=== PATIENT | male | born 1980 | race Caucasian/White ===

== ENCOUNTER 2017-02-22 09:09 | Day surgery (SDC) | payer OTHER ==
[~2017-02-22 09:09] MED LIST: DEXAMETHASONE 10 MG/ML VIAL IVP ONE; ceFAZolin 2 GM/DEXTROSE 100 ML IV ONE
[2017-02-22] MEDS ORDERED: CEFAZOLIN 2 GM/DEXTROSE/100 ML BAG IV ONE (09:31)
[2017-02-22] MEDS ORDERED: DEXAMETHASONE 10 MG/ML VIAL ONE (09:31)
[2017-02-22] MEDS ORDERED: LIDOCAINE 1% 2 ML INJ ONE (09:31)
[2017-02-22] MEDS ORDERED: fentaNYL 100 MCG/2 ML INJ ONE (10:29)
[2017-02-22] MEDS ORDERED: PROPOFOL 200 MG/20 ML VIAL ONE ×2 (10:29)
[2017-02-22] MEDS ORDERED: MIDAZOLAM 2 MG/2 ML VIAL ONE (11:07)
[2017-02-22] MEDS ORDERED: PROPOFOL/EMULSION 500 MG/50 ML BOTTLE IV ONE (12:08)
--- NOTE | 2017-02-22 17:10 | GOP ---
[f rep st] OPERATIVE REPORT DATE OF OPERATION: 02/22/2017 SURGEON: Talib Chris MD ANESTHESIA: General endotracheal. PREOPERATIVE DIAGNOSIS: Laryngeal lesions. POSTOPERATIVE DIAGNOSIS: Laryngeal lesions. PROCEDURE PERFORMED: Microlaryngoscopy and excision of vocal cord lesions and laser of base. FINDINGS: Vocal cord lesions excised with lasering of base of left vocal cord lesion. ESTIMATED BLOOD LOSS: 1 mL. DESCRIPTION OF PROCEDURE: The patient was placed on the operating table in a supine position. Afte r induction of adequate general endotracheal anesthesia, sterile draping was performed. A tooth gua rd was placed to protect the upper incisors. The Dedo laryngoscope was brought in. This was advanc ed into the oral cavity and oropharynx, and then positioned so that endolaryngeal visualization was adequate. The Lewy arm was attached to the laryngoscope. At this point, the microscope was brought in and the lesions of the right and left vocal fold were serially examined. It appeared as though the lesion of the right true vocal cord was a cystic mass, and then a secondary reactive mass was pr esent in the left vocal cord. The cystic mass was initially evaluated. The mucosa overlying the ma ss was incised with curved scissors, and the cystic mass was visualized just deep to the cord. Usin g blunt and sharp dissection, the mass was dissected and then removed, then handed off, maintaining as much of the vocal cord mucosa as possible. It was noted that a somewhat similar appearing, but p ossibly reactive lesion of the left vocal cord was present. This was grasped with cup forceps and r etracted medially and then incised. The base of this lesion was then treated with the OmniGuide las er on 5 rouse continuous. Once complete removal of the lesion on the right had been completed, as w ell as smoothing of the lesion on the left, the procedure was terminated. The laryngoscope was with drawn, as was the tooth guard. The patient was then awakened and transferred to the postanesthesia recovery area in stable condition. FLUID REPLACEMENT: 500 mL. COMPLICATIONS: None. /[id number]/MODL
== END 2017-02-22 13:36 | disposition home or self-care (01) ==
LOC: FSGY 09:09
PROVIDERS: ATTEND Otolaryngology
PROC: 0CBV8ZX Excision of Left Vocal Cord, Via Natural or Artificial Opening Endoscopic, Diagnostic (ICD-10-PCS; principal; 2017-02-22 11:00)
PROC: 0CBT8ZX Excision of Right Vocal Cord, Via Natural or Artificial Opening Endoscopic, Diagnostic (ICD-10-PCS; principal; 2017-02-22 11:00)
DX: J38.2 Nodules of vocal cords (principal)
CPT/HCPCS: J0690; J2250; J2704; J3010